=== PATIENT | female | born 1970 | race African-American/Black ===

== ENCOUNTER 2022-09-25 21:19 | Observation (INO) ==
[2022-09-25] MEDS ORDERED: NITROGLYCERIN 2% OINT 1 INCH/GM PACK TOP STA (21:41)
[2022-09-25] MEDS ORDERED: ONDANSETRON 4 MG/2 ML VIAL IV STA (21:41)
[2022-09-25] MEDS ORDERED: MORPHINE 2 MG/1 ML SYRINGE IV STA (21:41)
[2022-09-25] MEDS ORDERED: ASPIRIN 325 MG TABLET PO STA (21:41)
[2022-09-25] MEDS ORDERED: hydrALAZINE 20 MG/1 ML VIAL IV STA (21:41)
[2022-09-25 21:50] LABS: Basophils % 0.3 % (0.0-0.8); Eosinophils # 0.2 10*3/uL (0.0-0.87); Hematocrit 36.4 VOL% (35.7-47.0); Hemoglobin 12.2 GM/DL (12.0-16.0); Immature Granulocytes % 0.8 %; Immature Granulocytes Absolute 0.06 #; Lymphocytes # 2.4 10*3/uL (1.4-4.0); Lymphocytes % 29.7 % (21.3-54.2); Mean Corpuscular HGB Conc 33.5 GM/DL (32-36); Mean Corpuscular Volume 71.1 FL (87-102); Mean Platelet Volume 10.9 FL (9.6-12.0); Monocytes # 0.8 10*3/uL (0.11-0.8); Monocytes % 9.6 % (1.7-12.7); Neutrophils % 57.6 % (38.7-73.9); Platelet Count 256 T/CUMM (130-400); Red Blood Count 5.12 MC/CUMM (3.8-5.5); Red Cell Distribution Width 16.6 % (9.3-17.3); White Blood Count 7.94 T/CUMM (4-12)
[2022-09-25 22:05] LABS: Albumin 3.1 G/DL (3.4-5.0); Bilirubin,Total 0.7 MG/DL (0.20-1.00); Calcium 8.5 MG/DL (8.5-10.1); Osmolality,Calculated 276.5 MOS/KG (273-304); Potassium 3.6 MMOL/L (3.5-5.1); Total Protein 7.3 G/DL (6.4-8.2)
[2022-09-25 22:29] LABS: Bacteria,Urine Occasional /HPF (Few)
[2022-09-25 22:30] LABS: Bilirubin,Urine Negative (Negative); Blood, Urine Negative (Negative); Glucose,Urine (UA) Negative (Negative); Ketones,Urine Negative (Negative); Nitrite,Urine Negative (Negative); Protein,Urine Negative (Negative); Urine Appearance Clear (Clear); Urine Color Yellow (Yellow); Urine Specific Gravity <= 1.005 (1.001-1.035); Urine Urobilinogen 0.2 eU/dL (<2.0)
[2022-09-25] MEDS ORDERED: ENOXAPARIN 100 MG/ML SYRINGE SUBCUT STA (22:31)
[2022-09-25] MEDS ORDERED: BISACODYL 5 MG TABLET PO PRN (22:41)
[2022-09-25] MEDS ORDERED: diphenhydrAMINE CAP 25 MG CAPSULE PO PRN (22:41)
[2022-09-25] MEDS ORDERED: NICOTINE 21 MG/24 HR PATCH TRANSDERM PRN (22:41)
[2022-09-25] MEDS ORDERED: guaiFENesin/DM ER 600-30 MG TABLET PO PRN (22:41)
[2022-09-25] MEDS ORDERED: ACETAMINOPHEN 325 MG TABLET PO PRN (22:41)
[2022-09-25] MEDS ORDERED: ALBUTEROL/IPRATROPIUM 3 ML NEB RESP TX PRN (22:41)
[2022-09-25] MEDS ORDERED: ZALEPLON 5 MG CAPSULE PO PRN (22:41)
[2022-09-25] MEDS ORDERED: ONDANSETRON 4 MG/2 ML VIAL IV PRN (22:41)
[2022-09-25] MEDS ORDERED: MORPHINE 2 MG/1 ML SYRINGE IV PRN (22:41)
[2022-09-25] MEDS ORDERED: hydrALAZINE 20 MG/1 ML VIAL IV PRN (22:41)
[2022-09-25] MEDS ORDERED: ENOXAPARIN 30 MG/0.3 ML SYRINGE ONE (22:43)
[2022-09-25] MEDS ORDERED: NITROGLYCERIN SL 0.4 MG TABLET SL PRN (22:44)
[2022-09-25] MEDS ORDERED: TICAGRELOR 90 MG TABLET PO STA (22:46)
[2022-09-26 04:22] LABS: Basophils % 0.2 % (0.0-0.8); Eosinophils # 0.1 10*3/uL (0.0-0.87); Eosinophils % 2.3 % (0.00-10.9); Hematocrit 34.5 VOL% (35.7-47.0); Hemoglobin 11.8 GM/DL (12.0-16.0); Immature Granulocytes % 0.8 %; Immature Granulocytes Absolute 0.05 #; Lymphocytes # 1.7 10*3/uL (1.4-4.0); Lymphocytes % 27.3 % (21.3-54.2); Mean Corpuscular HGB Conc 34.2 GM/DL (32-36); Mean Corpuscular Volume 70.6 FL (87-102); Mean Platelet Volume 10.4 FL (9.6-12.0); Monocytes # 0.6 10*3/uL (0.11-0.8); Monocytes % 10.4 % (1.7-12.7); Platelet Count 253 T/CUMM (130-400); Red Blood Count 4.89 MC/CUMM (3.8-5.5); Red Cell Distribution Width 16.3 % (9.3-17.3); White Blood Count 6.15 T/CUMM (4-12)
[2022-09-26 04:37] LABS: Osmolality,Calculated 279.4 MOS/KG (273-304); Potassium 3.5 MMOL/L (3.5-5.1)
[2022-09-26] MEDS: PANTOPRAZOLE 40 MG TABLET PO SCH (09:01)
[2022-09-26] MEDS: amLODIPine 10 MG TABLET PO SCH (09:01)
[2022-09-26] MEDS ORDERED: GLUCAGON 1 MG VIAL IM PRN (09:48)
[2022-09-26] MEDS ORDERED: DEXTROSE 10% 250 ML BAG IV PRN (09:52)
[2022-09-26] MEDS: INSULIN LISPRO 100 UNIT/ML SUBCUT SCH ×3 (11:29→20:21)
[2022-09-26] MEDS: VALSARTAN 80 MG TABLET PO SCH (16:01)
[2022-09-27 04:34] LABS: Basophils % 0.3 % (0.0-0.8); Eosinophils # 0.3 10*3/uL (0.0-0.87); Eosinophils % 3.7 % (0.00-10.9); Hematocrit 34.5 VOL% (35.7-47.0); Hemoglobin 11.9 GM/DL (12.0-16.0); Immature Granulocytes % 0.7 %; Immature Granulocytes Absolute 0.05 #; Lymphocytes # 2.4 10*3/uL (1.4-4.0); Lymphocytes % 34.4 % (21.3-54.2); Mean Corpuscular HGB Conc 34.5 GM/DL (32-36); Mean Platelet Volume 10.8 FL (9.6-12.0); Monocytes # 0.8 10*3/uL (0.11-0.8); Monocytes % 11.8 % (1.7-12.7); Neutrophils % 49.1 % (38.7-73.9); Platelet Count 244 T/CUMM (130-400); Red Blood Count 4.86 MC/CUMM (3.8-5.5); Red Cell Distribution Width 16.5 % (9.3-17.3); White Blood Count 6.95 T/CUMM (4-12)
[2022-09-27 04:50] LABS: Calcium 8.4 MG/DL (8.5-10.1); Osmolality,Calculated 279.4 MOS/KG (273-304); Potassium 3.7 MMOL/L (3.5-5.1)
[2022-09-27 04:56] LABS: Risk Ratio 3.75; VLDL Cholesterol 19.8 MG/DL
[2022-09-27] MEDS ORDERED: ASPIRIN EC 81 MG TABLET PO SCH (09:00)
[2022-09-27 09:20] LABS: Free T4 (Free Thyroxine) 0.95 NG/DL (0.76-1.46); Thyroid Stimulating Hormone 9.45 uIU/ml (0.358-3.74)
[2022-09-27] MEDS: amLODIPine 10 MG TABLET PO SCH (09:30)
[2022-09-27] MEDS: PANTOPRAZOLE 40 MG TABLET PO SCH (09:30)
[2022-09-27] MEDS: INSULIN LISPRO 100 UNIT/ML SUBCUT SCH ×2 (09:31→13:29)
[2022-09-27] MEDS: VALSARTAN 80 MG TABLET PO SCH (09:31)
[2022-09-27 12:29] VITALS: BP 136/67
[2022-09-27] MEDS ORDERED: INFLUENZA VIRUS VACCINE 0.5 ML SYRINGE IM ONE (14:17)
== END 2022-09-27 15:08 | disposition home or self-care (01) ==
LOC: N.ED 21:19 → SUATTDRO 22:41 → INTOOBSV 22:41 → N.EDINP 22:41 → N.TELEN 09-26 16:56
PROVIDERS: ADMIT Family Medicine; ATTEND Family Medicine